=== PATIENT | female | born 1950 ===

== ENCOUNTER → 2020-07-27 13:42 | Outpatient (BNVA) | payer MEDICARE, SELFPAY | PROVIDERS: Referring Provider Family Medicine; Visit Provider Student in an Organized Health Care Education/Training Program | DX: M16.11 Unilateral primary osteoarthritis, right hip (principal) | CPT/HCPCS: 99203 ==

== ENCOUNTER 2020-09-04 13:17 | Outpatient (CLI) | payer MEDICARE, SELFPAY ==
--- NOTE | 2020-09-04 13:00 | DI.RAD_ITS ---
Exam(s) XR PELVIS AP EXAM: XR PELVIS AP CLINICAL HISTORY: pre op bilat JEREMIAS. TECHNIQUE: 2D digital imaging was performed. COMPARISON: CR PELVIS from 06/06/2020 FINDINGS: No evidence of pelvic fracture but there are advanced degenerative changes in both hips and left hip degenerative change has progressed when compared to 3 months ago. Now [id number], more so than pre vious. Right hip is [id number] which is unchanged. In the left hip there is also a calcific densi ty above the femoral neck which is probably a loose intra-articular body measuring approximately 9 x 8 millimeters. IMPRESSION: DATA REPOSITORY: RADIATION DOSE DELIVERED:
== END 2020-09-04 13:18 | disposition home or self-care (01) ==
LOC: DIORS 13:18
PROVIDERS: Visit Provider Physician Assistant
DX: Z01.818 Encounter for other preprocedural examination (principal); M16.0 Bilateral primary osteoarthritis of hip
CPT/HCPCS: 72170

== ENCOUNTER 2020-09-11 02:11 | Outpatient (CLI) | payer SELFPAY ==
[2020-09-11 11:42] LABS: Source Nasal/Nares
[2020-09-11 11:51] LABS: Anion Gap 11.5 mmol/L (3-11); BUN 10 mg/dL (7-18); CO2 27.5 mmol/L (21.0-32.0); CREATININE 0.6 mg/dL (0.55-1.02); Calcium 9.5 mg/dL (8.5-10.1); Chloride 102 mmol/L (98-107); Glucose 91 mg/dL (74-106); Potassium 4.2 mmol/L (3.5-5.1); Sodium 141 mmol/L (136-145)
[2020-09-11 12:09] LABS: HCT 36.2 % (36.0-46.0); HGB 11.7 g/dL (11.2-15.7); MCH 27.7 pg (27.0-33.0); MCHC 32.3 % (32.0-36.0); MCV 85.8 fL (80-95); MPV 8.8 fL (8.0-11.0); Platelet Count 497 10^3/uL (130-400); RBC 4.22 10^6/uL (3.93-5.22); RDW 12.1 % (11.7-14.6); WBC 9.26 10^3/uL (4.4-10.8)
[2020-09-11 14:48] LABS: COVID-19 PCR Negative (Negative)
== END 2020-09-11 02:12 | disposition home or self-care (01) ==
LOC: LBO 02:11
PROVIDERS: Visit Provider Student in an Organized Health Care Education/Training Program
DX: M25.551 Pain in right hip (principal); M25.552 Pain in left hip; M16.0 Bilateral primary osteoarthritis of hip; Z20.822 Contact with and (suspected) exposure to COVID-19; Z01.818 Encounter for other preprocedural examination; Z01.812 Encounter for preprocedural laboratory examination
CPT/HCPCS: 36415; 80048; 85027; 86850; 86900; 86901; 87635

== ENCOUNTER 2020-09-12 06:12 | Inpatient (IN) | payer MEDICARE, SELFPAY ==
[2020-09-12] VITALS (21 sets, daily range): BP systolic 90–157; BP diastolic 55–88; PULSE 62–88; RESP 12–22; TEMP 35.9–37.1; O2SAT 95–100; BMI 19.3
--- NOTE | 2020-09-12 06:46 | W.ANESPRE ---
General Info Date of Service Date Performed: 09/12/20 Height: 5 ft 4 in Weight: 51 kg Body Mass Index (BMI): 19.3 Surgical Procedure: Operation Date: 09/12/20 08:00 Proposed Procedures Side Surgeon p Hip Total Hip Anterior Bilateral Bari Bliss MD Meds Allergies and Home Medications Allergies Allergy/AdvReac Type Severity Reaction Status Date / Time No Known Allergies Allergy Verified 09/12/20 06:19 Home Medication Medication Instructions Recorded gabapentin 800 mg tablet 800 mg PO TID 07/27/20 ibuprofen 600 mg tablet 600 mg PO Q8H PRN 07/27/20 trazodone 100 mg tablet 100 mg PO DAILY 07/27/20 Current Visit Medications: Current Medications Generic Name Dose Route Start Last Admin Trade Name Freq PRN Reason Stop Dose Admin Acetaminophen 1,000 mg 09/12/20 06:00 Acetaminophen 500 Mg Tab PO 09/12/20 23:59 PREOP BILLY Celecoxib 400 mg 09/12/20 06:00 Celecoxib 200 Mg Cap PO 09/12/20 23:59 PREOP BILLY Tranexamic Acid 1,000 mg/ 60 mls @ 360 mls/hr 09/12/20 06:00 Sodium Chloride IV 09/12/20 23:59 PREOP BILLY Tranexamic Acid 1,000 mg/ 60 mls @ 360 mls/hr 09/12/20 06:00 Sodium Chloride IV 09/12/20 23:59 DIRECTED BILLY Ringer's Solution 1,000 mls @ 80 mls/hr 09/12/20 06:00 IV 10/11/20 23:59 INFUSION BILLY Cefazolin Sodium/Dextrose 2 gm in 50 mls @ 100 mls/hr 09/12/20 06:00 Ancef Duplex IVPB 09/12/20 23:59 PREOP BILLY IV Miscellaneous Supplies 1 each 09/12/20 06:00 Iv Access IV 10/11/20 23:59 DIRECTED BILLY Sodium Chloride 0 ml 09/12/20 06:00 Normal Saline Flush 10 Ml Syr IV 10/11/20 23:59 PRN PRN Sodium Chloride 0 ml 09/12/20 06:00 Normal Saline 10 Ml Vial IJ 10/11/20 23:59 DIRECTED PRN Sterile Water 0 ml 09/12/20 06:00 Water,Injection,Sterile 10 Ml Vial IJ 10/11/20 23:59 DIRECTED PRN PFSH Active Problems Active Problems: Problem Status Onset Code Osteoarthritis of right hip M16.11 Bilateral primary osteoarthritis of hip M16.0 Medical History Medical History Bilateral primary osteoarthritis of hip Surgical History Surgical History (Updated 09/12/20 @ 06:18 by Marcos Del Castillo) H/O section History of left inguinal hernia repair Hx of exploratory laparotomy Tobacco Smoking/Tobacco Use Status: Never Alcohol Alcohol Intake: current Alcohol intake frequency: a few times a week Alcohol type: beer and hard liquor Substance Use Substance use: Never Substance use type: does not use Vital Signs and Lab Results Vital Signs Most Recent Vital Signs in EMR: Most Recent Vital Signs Temp Resp 37.1 C 16 09/12/20 06:23 09/12/20 06:23 Lab Results Blood Type / Crossmatch: Patient ABO/Rh A Negative 09/11/20 10:50 09/11/20 Antibody Screen Negative 09/11/20 10:50 09/11/20 Complete Blood Count: White Blood Count 9.26 10^3/uL (4.4-10.8) 09/11/20 10:50 09/11/20 Red Blood Count 4.22 10^6/uL (3.93-5.22) 09/11/20 10:50 09/11/20 Hemoglobin 11.7 g/dL (11.2-15.7) 09/11/20 10:50 09/11/20 Hematocrit 36.2 % (36.0-46.0) 09/11/20 10:50 09/11/20 Platelet Count 497 10^3/uL (130-400) H 09/11/20 10:50 09/11/20 Complete Metabolic Panel: Sodium Level 141 mmol/L (136-145) 09/11/20 10:50 09/11/20 Potassium Level 4.2 mmol/L (3.5-5.1) 09/11/20 10:50 09/11/20 Chloride Level 102 mmol/L (98-107) 09/11/20 10:50 09/11/20 Carbon Dioxide Level 27.5 mmol/L (21.0-32.0) 09/11/20 10:50 09/11/20 Blood Urea Nitrogen 10 mg/dL (7-18) 09/11/20 10:50 09/11/20 Creatinine 0.6 mg/dL (0.55-1.02) 09/11/20 10:50 09/11/20 Calcium Level 9.5 mg/dL (8.5-10.1) 09/11/20 10:50 09/11/20 Glucose Level 91 mg/dL (74-106) 09/11/20 10:50 09/11/20 Liver Function Panel: No Data to Display Coagulation Panel: No Data to Display Cardiac Panel: No Data to Display Arterial Blood Gas: No Data to Display Venous Blood Gas: No Data to Display Pancreas Panel: No Data to Display Thyroid Panel: No Data to Display Infectious Disease: Coronavirus (COVID-19)(PCR) Negative (Negative) 09/11/20 10:56 09/11/20 Coronavirus 2019 Source Nasal/nares 09/11/20 10:56 09/11/20 Blood Cultures: No Data to Display Toxicology Panel: No Data to Display Anesthesia Assessment and Plan Anesthesia History Personal History: No History of Anesthesia Complications Family History: No Family History of Anesthesia Complications Exercise Tolerance Exercise Tolerance: Metabolic Equivalents>4 Pertinent Negatives Pertinent Negatives: No Symptoms of GERD, No Major Cardiovascular Symptoms or Complaints, No Major Pulmonary Symptoms or Complaints and No History of CVA/TIA Cardiac & Pulmonary Exam Cardiac Exam: Normal S1/S2 Heart Sounds Pulmonary Exam: Clear Bilateral Breath Sounds Airway Exam Known Difficult Airway: No Mallampati Class: 2 Mouth Opening: Normal (> 3cm) Thyromental Distance: Greater than 3 cm Neck Range of Motion: Full ROM Neck Circumference: Normal Teeth Condition: Normal Dentition ASA Classification ASA Score: ASA 2 Emergency Case?: No NPO Status NPO Status: NPO Clears >2 hours, Solids >8 hours Anesthesia Plan Resuscitation Status: Full Code Anesthesia Technique: Spinal Anesthesia Airway Planned: Natural Airway Monitors Used: Standard Monitors
--- NOTE | 2020-09-12 07:00 | DI.RAD_ITS ---
Exam(s) XR HIP LT IN OR EXAM: XR HIP LT IN OR CLINICAL HISTORY: osteoarthritis of left hip. TECHNIQUE: 2D and realtime digital imaging was performed. COMPARISON: No exams were available for comparison FINDINGS: Fluoroscopy was provided in the OR for Dr. Bliss. Hard copy images show placement of a left hip p rosthesis. The alignment appears satisfactory. Please see procedure note for details. RADIATION DOSE DELIVERED: charlie Kauffman= 4.99 mGy
--- NOTE | 2020-09-12 07:00 | DI.RAD_ITS ---
Exam(s) XR HIP RT IN OR EXAM: XR HIP RT IN OR CLINICAL HISTORY: osetoarthritis right hip. TECHNIQUE: 2D and realtime digital imaging was performed. COMPARISON: No exams were available for comparison FINDINGS: Fluoroscopy was provided in the OR for Dr. Bliss. Hard copy images show placement of a right hip prosthesis. The alignment appears satisfactory. Please see procedure note for details. RADIATION DOSE DELIVERED: Kar=2.62 mGy
[2020-09-12] MEDS: Celecoxib 200 MG CAP 400 MG PO (07:03)
[2020-09-12] MEDS: Acetaminophen 500 MG TAB 1000 MG PO ×3 (07:03→19:56)
[2020-09-12] MEDS: Lactated Ringers 1,000 ML 80 ML IV ×2 (07:04→14:25)
--- NOTE | 2020-09-12 07:34 | W.PM.DS.N ---
Documented by User: Zaria Juarezxon 09/12/20 07:39 DS: Diagnosis Discharge Diagnosis (1) Bilateral primary osteoarthritis of hip: Status: Acute Discharge Plan Disposition Patient Disposition: HOME Condition: Good Discharge Details Reason For Visit: Bilateral hip DJD Admit Date/Time: 09/12/20 06:12 Admit Provider: Bari Bliss Attending Provider: Bari Bliss Primary Care Provider: None,None Hospital Course Hospital Course: Patient was admitted to the medical/surgical floor following the procedure. The surgery was tolerated well without any notable medical, surgical, or anesthetic complications. Mobilization began post-operatively. They were voiding spontaneously. Vitals were stable. Physical therapy worked with the patient and was cleared for discharge home. No acute medical issues. Pain was controlled on oral regimen. She was sensitive to a single dose of Hydromorphone causing some confusion and hypotension. Home Meds and New Rx's Prescriptions: New celecoxib [Celebrex] 200 mg capsule 200 mg PO BID Qty: 30 RF: 0 aspirin 81 mg tablet,delayed release (DR/EC) 81 mg PO BID 30 Days Qty: 60 RF: 0 acetaminophen 500 mg tablet 500 mg PO Q6H PRN (Reason: pain) Qty: 60 RF: 2 pantoprazole 40 mg tablet,delayed release (DR/EC) 40 mg PO DAILY 30 Days Qty: 30 RF: 0 oxycodone 5 mg tablet 5 mg PO Q6H PRN (Reason: severe post-operative pain) Qty: 12 RF: 0 docusate sodium [Colace] 100 mg capsule 100 mg PO BID Qty: 30 RF: 0 Continued gabapentin 800 mg tablet 800 mg PO TID RF: 0 trazodone 100 mg tablet 100 mg PO DAILY RF: 0 Discontinued ibuprofen 600 mg tablet 600 mg PO Q8H PRNRF: 0 Discharge Instructions Additional Instructions: Total Hip Discharge Instructions Activity: The most important activity is to walk. You should try to take short walks a few times a day. You have no restrictions on movement or positioning, but do not try to force what you do. You will find some stiffness and weakness with hip flexion (lifting your knee). Do not try to strengthen this too early, continue to practice walking and stairs and this will come. - Outpatient physical therapy can be helpful to help return you to a normal gait and improve your flexibility and strength. This can start around 2 weeks. For some patients, it?s not necessary. Usually this is determined at the time of discharge or at the first post-operative visit. - You should wear the AMY hose on both legs for 2 weeks. Dressing: Keep the surgical dressing in place for at least one week. After the first week it may be removed and replace with light gauze and tape or nothing. It may get wet after 3 days but avoid soaking the dressing. If it gets wet, just lightly pat dry. It is important to always keep some gauze between skin folds, especially when you are sitting. Spend some time with the wound exposed when you are lying flat as the incision does wrinkle onto itself. Medications: - You should take Tylenol and an anti-inflammatory Celebrex as your primary pain control medications. If the Celebrex is too expensive or not covered, please call the office for another alternative (Advil/Ibuprofen or Naproxen/Aleve). - You have been prescribed a stronger pain medication Oxycodone for breakthrough pain, take as needed as prescribed. You may also halve this tablet. - You have also been prescribed a stomach acid reduction agent Pantoprozole to help reduce stomach acid and reflux. - You will be taking Aspirin 81mg twice a day for DVT prevention unless instructed otherwise. - If you have constipation you should take Colace (which was prescribed) or Miralax (which you may purchase [id number]). It takes most people 3-4 days to have a bowel movement. Follow-up: 2 weeks If you have any acute concerns or questions, please do not hesitate to contact the office at [phone]. You may contact Dr. Bliss with any questions after hours through the hospital at [phone] or on his cell phone at [phone]. Referrals: Bari Bliss MD [ [facility] STAFF PHYSICIAN] - Activity:: Activity as Tolerated Equipment/Supplies:: Walker Diet:: As Tolerated Discharge Orders Discharge Orders: Discharge Order (Routine); Ordered 09/13/20 Ordered By: Bari Bliss DS: Data Vitals/I&O Vitals and I&O: Vital Signs Temperature 37.1 C 09/12/20 06:23 Pulse Rhythm Regular 09/12/20 06:23 Respiratory Rate 16 09/12/20 06:23 Respiratory Depth Normal 09/12/20 06:23 Oxygen Delivery Method Room Air 09/12/20 06:23 Oxygen Flow Rate 0 09/12/20 06:23 Pain Level 5 09/12/20 06:23 Intake & Output 09/11/20 09/11/20 09/12/20 11:59 23:59 11:59 Weight 51 kg PFSH Medical History Bilateral primary osteoarthritis of hip Surgical History H/O section History of left inguinal hernia repair Hx of exploratory laparotomy Social History Smoking/Tobacco Use Status: Never Smoking risk assessment performed?: Yes Alcohol Intake: current Alcohol Intake frequency: a few times a week Alcohol type: beer and hard liquor Drug use: Never Substance use type: does not use Do you feel safe at home: Yes Additional Social history: lives alone Documented by User: Bari Bliss MD 09/13/20 08:05 Date of service: 09/13/20 Time of Service: 08:02 Discharge Plan Disposition Patient Disposition: HOME Condition: Good Discharge Details Reason For Visit: Bilateral hip DJD Admit Date/Time: 09/12/20 06:12 Admit Provider: Bari Bliss Attending Provider: Bari Bliss Primary Care Provider: None,None Hospital Course Hospital Course: Patient was admitted to the medical/surgical floor following the procedure. The surgery was tolerated well without any notable medical, surgical, or anesthetic complications. Mobilization began post-operatively. They were voiding spontaneously. Vitals were stable. Physical therapy worked with the patient and was cleared for discharge home. No acute medical issues. Pain was controlled on oral regimen. She was sensitive to a single dose of Hydromorphone causing some confusion and hypotension. Home Meds and New Rx's Prescriptions: New celecoxib [Celebrex] 200 mg capsule 200 mg PO BID Qty: 30 RF: 0 aspirin 81 mg tablet,delayed release (DR/EC) 81 mg PO BID 30 Days Qty: 60 RF: 0 acetaminophen 500 mg tablet 500 mg PO Q6H PRN (Reason: pain) Qty: 60 RF: 2 pantoprazole 40 mg tablet,delayed release (DR/EC) 40 mg PO DAILY 30 Days Qty: 30 RF: 0 oxycodone 5 mg tablet 5 mg PO Q6H PRN (Reason: severe post-operative pain) Qty: 12 RF: 0 docusate sodium [Colace] 100 mg capsule 100 mg PO BID Qty: 30 RF: 0 Continued gabapentin 800 mg tablet 800 mg PO TID RF: 0 trazodone 100 mg tablet 100 mg PO DAILY RF: 0 Discontinued ibuprofen 600 mg tablet 600 mg PO Q8H PRNRF: 0 Discharge Instructions Additional Instructions: Total Hip Discharge Instructions Activity: The most important activity is to walk. You should try to take short walks a few times a day. You have no restrictions on movement or positioning, but do not try to force what you do. You will find some stiffness and weakness with hip flexion (lifting your knee). Do not try to strengthen this too early, continue to practice walking and stairs and this will come. - Outpatient physical therapy can be helpful to help return you to a normal gait and improve your flexibility and strength. This can start around 2 weeks. For some patients, it?s not necessary. Usually this is determined at the time of discharge or at the first post-operative visit. - You should wear the AMY hose on both legs for 2 weeks. Dressing: Keep the surgical dressing in place for at least one week. After the first week it may be removed and replace with light gauze and tape or nothing. It may get wet after 3 days but avoid soaking the dressing. If it gets wet, just lightly pat dry. It is important to always keep some gauze between skin folds, especially when you are sitting. Spend some time with the wound exposed when you are lying flat as the incision does wrinkle onto itself. Medications: - You should take Tylenol and an anti-inflammatory Celebrex as your primary pain control medications. If the Celebrex is too expensive or not covered, please call the office for another alternative (Advil/Ibuprofen or Naproxen/Aleve). - You have been prescribed a stronger pain medication Oxycodone for breakthrough pain, take as needed as prescribed. You may also halve this tablet. - You have also been prescribed a stomach acid reduction agent Pantoprozole to help reduce stomach acid and reflux. - You will be taking Aspirin 81mg twice a day for DVT prevention unless instructed otherwise. - If you have constipation you should take Colace (which was prescribed) or Miralax (which you may purchase [id number]). It takes most people 3-4 days to have a bowel movement. Follow-up: 2 weeks If you have any acute concerns or questions, please do not hesitate to contact the office at [phone]. You may contact Dr. Bliss with any questions after hours through the hospital at [phone] or on his cell phone at [phone]. Referrals: Bari Bliss MD [ [facility] STAFF PHYSICIAN] - Activity:: Activity as Tolerated Equipment/Supplies:: Walker Diet:: As Tolerated Discharge Orders Discharge Orders: Discharge Order (Routine); Ordered 09/13/20 Ordered By: Bari Bliss DS: Summary Time Spent with Patient providing and/or coordinating discharge services: Less than 30 minutes Status at Discharge Functional status at discharge: uses cane/walker Overall status at discharge: patient is progressing back to baseline Mental Status: mental status grossly normal Speech and Movement: speech and movement normal Mood: congruent mood Affect: normal affect Exam Psych Mental Status: mental status grossly normal Speech and Movement: speech and movement normal Mood: congruent mood Affect: normal affect [facility] Medical History Bilateral primary osteoarthritis of hip Surgical History H/O section History of left inguinal hernia repair Hx of exploratory laparotomy Social History Smoking/Tobacco Use Status: Never Smoking risk assessment performed?: Yes Alcohol Intake: current Alcohol Intake frequency: a few times a week Alcohol type: beer and hard liquor Drug use: Never Substance use type: does not use Do you feel safe at home: Yes Additional Social history: lives alone
[2020-09-12] MEDS: ceFAZolin 2 GM/50 ML BAG IVPB (08:00)
[2020-09-12] MEDS: Ketorolac 30 MG/ML VIAL (08:45)
[2020-09-12] MEDS: Bupivacaine 0.25% Pres-Free 30 ML VIAL (08:45)
[2020-09-12] MEDS: LORazepam 2 MG/ML VIAL 0.5 MG IVP (11:47)
--- NOTE | 2020-09-12 13:05 | IN_ITS ---
Date of service: 09/12/20 Time of Service: 13:05 PT Notes Visit Reasons: Bilateral hip DJD Physical Therapy Inpatient Initial Evaluation Date: 09/12/2020 Referring Doctor: Bari Bliss MD PT Orders: PT CONSULT: Status post Ortho surgery. Status post bilateral anterior JEREMIAS. Precautions: Fall. Standard. WBAT on BLE with AD. Patient Profile/Admitting Diagnosis: Margret is a 70-year-old female withl primary osteoarthritis of bilateral hips and is status post bilateral anterior total hip arthroplasty on done PMHX: Medical History? Bilateral primary osteoarthritis of hip Surgical History?(Updated 09/04/20 @ 14:13 by OSCAR Andres) H/O section History of left inguinal hernia repair Social History/Home Situation: Emily lives alone in a private home with 2 steps to enter without rails. There is another set of 20 steps to her bedroom and 7 steps to her basement, both have a 1 rail. She is independent with all aspects of ADLs prior to surgery without assistive ambulatory device nor adaptive equipment. 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 Equipment Owned/DME: 4-wheeled walker, single-point cane Subjective: [place] a little woozy upon sitting up in bed. Reports 3/10 pain in lo back. States being stiff in B hips. Ready to get out of bed to walk. Inicated feeling a lot better and less stiffer after ambulation activity. Objective: General Observation: Mepilex Ag over surgical incisions. B TEDS on. Bang[place] catheter in place. Mental Status: Alert and oriented as to person, place, time, and purpose. Able to pay attention, focus, and respond appropriately. Pain: 3/10 in low back and B hips Vital Signs: Within normal limits as closely monitored before and during physical therapy session by nurse Montgomery ROM: Right Upper Extremity: Shoulder Flexion WFL. Shoulder abduction WFL. Shoulder ER/IR WFL. Elbow flexion WFL. Forearm pronation/supination WFL. Wrist flexion WFL. Opening and closing of hand WFL. Left Upper Extremity: Shoulder Flexion WFL. Shoulder abduction WFL. Shoulder ER/IR WFL. Elbow flexion WFL. Forearm pronation/supination WFL. Wrist flexion WFL. Opening and closing of hand WFL. Right Lower Extremity: Hip flexion WFL. Hip abduction WFL. Hip ER/IR WFL. Knee flexion WFL. Knee extension. Ankle dorsiflexion/eversion WFL. Ankle plantarflexion/inversion WFL. Left Lower Extremity: Hip flexion WFL. Hip abduction WFL. Hip ER/IR WFL. Knee flexion 20 degrees to 100 degrees. Knee extension -20 degrees. Ankle dorsiflexion WFL. Ankle plantarflexion WFL. Strength: Right Upper Extremity: Shoulder flexors 5/5. Shoulder abductors 5/5. Shoulder ER 5/5. Shoulder IR 5/5. Forearm pronators 5/5. Forearm supinators 5/5. Elbow flexors 5/5. Elbow extensors 5/5. Guest Services Coordinator strong. Left Upper Extremity: Shoulder flexors 5/5. Shoulder abductors 5/5. Shoulder ER 5/5/ Shoulder IR 5/5. Forearm pronators 5/5. Forearm supinators 5/5. Elbow flexors 5/5. Elbow extensors 5/5. Guest Services Coordinator strong. Right Lower Extremity: Hip flexors 4/5. Hip abductors 4/5. Hip external rotators 4/5. Hip internal rotators 4/5. Knee flexors 4/5. Knee extensors 4/5. Ankle dorsiflexors/evertors 5/5. Ankle plantarflexors/invertors 5/5. Left Lower Extremity: Hip flexors 4/5. Hip abductors 4/5. Hip external rotators 4/5. Hip internal rotators 4/5. Knee flexors 3-/5. Knee extensors 3-/5. Ankle dorsiflexors/evertors 5/5. Ankle plantarflexors/invertors 5/5. Bed Mobility/Transfers: Rolling minimal assist Supine to sit minimal assist with HOB at 45 degrees Sit to stand contact-guard assist Stand to sit contact-guard assist Bed to chair contact-guard assist Chair to bed contact-guard assist Gait: Guided patient with level surface ambulation of 240 feet using front wheeled walker with WBAT on BLE requiring contact-guard assist with decreased lovely, slightly widened LASHELL, and no report of 3/10 pain resolved with rest. No SOB. Denies headache and chest pain. No LOB. Balance: Static Sitting: Normal Dynamic Sitting: Normal Static Standing: Fair Dynamic Standing: Fair Special Tests: Mobility Limitations Standardized Measure [facility] AM-PAC 6 clicks Basic Mobility Inpatient Short Form: Raw Score: 18 CMS Score: 47% deficit Informed Consent/Education: Patient and daughters were instructed in purpose of PT consult and plan of care. Agreeable to proceed with established PT POC to achieve personal goals. Room exercises were written today for patient to minimize stiffness, prevent swelling, and maintain AROM. Assessment: Emily demonstrates functional mobility decline, weakness of B hip musculature, difficulty with walking, impairment in balance, impaired activity tolerance, and increased risk for falls due to postoperative status. Daughters will be both at home to provide support for mother as she recovers at home. Patient presents with clinical signs and symptoms consistent with current/admitting diagnoses that have resulted to mobility limitations, gait instability, generalized weakness, and impairment of motor control as demonstrated by the following impairment level findings: 1. Decreased strength to B hip major muscle groups L knee extensor weakness>>R 2. Impaired sitting/standing balance 3. Impaired activity tolerance Impairments are contributing to the following functional limitations: 1. Dependent bed mobility skills 2. Increased dependence with transfers 3. Inability to safely ambulate without assistive device and physical assistance 4. Increase completion time for mobility ADL performance 5. Increased fall risk 6. Inability to negotiate steps alone safely Patient is assessed as a 05729 moderate complexity based on the following: History: 70-year-old female with past medical history as indicated above Examination: Demonstrable impairment in strength, balance, and mobility level with underlying impairments and functional limitations as exhibited above as well as deficit score of 47% utilizing the [facility] Mobility Inpatient Short Form Presentation: Evolving Decision Makin moderate complexity Goals: Goals X1 week 1. Supine-Sit independent 2. Sit-Supine independent 3. Sit-Stand independent 4. Stand-Sit independent 5. Bed-Chair independent 6. Chair-Bed independent 7. Independent gait on level surface with use of front wheel walker for at least 300 feet without report of pain nor dyspnea 8. Independent stair negotiation while holding onto 1 rail for at least 15 steps without report of pain nor dyspnea 9. Independent with home exercise program 10. Good static and dynamic standing balance/tolerance Plan of Care/Treatment Plan: 1-2x/day, 7 days/week x 1 week. Plan of care has been reviewed with the PATIENT SERVICE COORDINATOR providing the service under Physical Therapy direction. Initiate Physical Therapy intervention for pain management as needed, strengthening, bed mobility, transfers, gait, stairs, balance training, and use of assistive device. DISCHARGE RECOMMENDATIONS: Home when medically cleared by orthopedic surgeon. Patient will benefit from home health PT services in order to progress mobility level using least restrictive assistive ambulatory device, assess home safety, identify additional equipment needs, and establish a functional maintenance program that will increase ability of patient to remain at home. TREATMENT CODE/TIME: 97091 x 30 minutes, 43698 x 15 minutes, [id number] x 14 minutes beginning at 13:05 PM. Thank you for the opportunity to participate in the care of this patient. Francoise Savage PT, DPT, CLT [facility] [place], [place]
--- NOTE | 2020-09-12 14:06 | W.ANESPOSTOP ---
Postoperative Evaluation Date, Time and Location Date Performed: 09/12/20 Time Performed: 14:06 Patient Location: Med/Surg Vital Signs Most Recent Imported Vital Signs: Most Recent Vital Signs Temp Pulse Resp BP Pulse Ox 35.9 C L 78 18 127/79 95 09/12/20 13:15 09/12/20 13:15 09/12/20 13:15 09/12/20 13:15 09/12/20 13:15 Pain Score Most Recent Pain Score: Most Recent Pain Score Pain Level 3 09/12/20 13:15 Assessment Mental Status: Awake (Alert & Oriented to Patient Baseline) Airway and Respiratory Function: Patent airway with normal (patient baseline) respiratory exam Cardiovascular Function: Hemodynamically Stable Hydration Status: Adequately Hydrated Nausea & Vomiting: No Nausea or Vomiting Pain: Pain is tolerable/mild (<5/10) Peripheral Nerve Block: Patient did not receive a nerve block
[2020-09-12] MEDS: ceFAZolin 1 GM/50 ML BAG IVPB ×2 (14:25→21:37)
[2020-09-12] MEDS: Gabapentin 800 MG TAB PO ×2 (14:27→19:55)
[2020-09-12] MEDS: oxyCODONE 5 MG TAB PO (15:08)
[2020-09-12] MEDS: Aspirin E.C. 81 MG TABEC PO (19:55)
[2020-09-12] MEDS: Celecoxib 200 MG CAP PO (19:56)
[2020-09-12] MEDS: traZODone 100 MG TAB PO (21:36)
[2020-09-12] MEDS: HYDROmorphone 2 MG/ML VIAL 0.5 MG IVP (21:36)
[2020-09-12] MEDS: Normal Saline Flush 10 ML SYR IV (21:37)
--- NOTE | 2020-09-12 22:33 | W.PM.OP ---
Date of service: 09/12/20 Time of Service: 10:33 Operative Note Operative Note DATE OF PROCEDURE: 09/12/20 PRE-OP DIAGNOSIS: Bilateral Hip Osteoarthritis POST-OP DIAGNOSIS: same PROCEDURE: Bilateral Anterior Total Hip Arthroplasty SURGEON: Bari Bliss PRACTICAL NURSING FACULTY: Zaria Floyd ANESTHESIA TYPE: Spinal Refer to Anesthesia Record ESTIMATED BLOOD LOSS: 300 PATHOLOGY: none sent TOURNIQUET TIME: 0 COMPLICATIONS: None Patient was transported to: PACU Patient's condition: stable Implants: RIGHT: 1. Depuy [place] Acetabular Component, 50mm 2. Depuy Acetabular Liner, [id number] 3. Depuy Corail Standard Collared Femoral Stem, Size 11 4. Depuy Altrx Ceramic Femoral Head, Size 32+1 LEFT: 1. Depuy [place] Acetabular Component, 50mm 2. Depuy Acetabular Liner, 50x32 mm 3. Depuy Corail Standard Collared Femoral Stem, Size 11 4. Depuy Altrx Ceramic Femoral Head, Size 32+5mm Indications: I have seen Emily in clinic for symptoms of hip arthritis, confirmed with radiographic findings. Emily has exhausted nonoperative methods and was having significant limitations in daily function and desired better function and less pain. I discussed the technical details of a hip replacement. I explained the risks of the procedure to include, but not limited to, bleeding, infection, pain, stiffness, fracture, damage to nerves and vessels, damage to muscles and tendons, loosening, instability, leg length inequality, need for repeat procedure, blood clot and cardiopulmonary demise. Despite these risks, she elected to proceed. Findings: There was significant signs of arthritis throughout both hips. Deformity was noted on the right hip and complete loss of superior cartilage was present on both femoral heads. Procedure Description: Emily was greeted in the preoperative holding area where the correct side was identified and marked. The consent was reviewed with the patient and signed. The history and physical was updated. All questions were answered. Emily was taken back to the operating room. A spinal anesthestic was then administered. The patient was placed into the supine position on the HANA table where both feet were wrapped with Webrill and Koban and placed into well padded boots. The boots were secured and attached to the HANA table. She was slid down onto a peroneal post. Arms were secured in an abducted position, well padded. Prophylactic antibiotics in the form of Cefazolin were administered. 1g of Tranxemic Acid was given intravenously within 30 minutes of incision. The right leg was then prepped with Chloraprep and draped in a standard fashion. A second prep with Chloraprep was performed prior to placement of a shower-curtain type drape with Iodine impregnated skin protection. A timeout to confirm correct identity, side and site, procedure, allergies, anesthesia, and medical concerns was performed. RIGHT Side An obliquely oriented incision was made starting lateral to the ASIS and running distal over the Tensor Fascia Maci (TFL) muscle belly toward the fibular head, approximately 10cm. The skin and soft tissue was dissected sharply, through Kaur?s fascia, and to the fascia of the TFL. With the fascia and superior border of the IT band identified, the fascia was incised with a new knife just above any perforators from the IT band. The TFL muscle belly was bluntly dissected away from the fascia and moved laterally. The fat between TFL and rectus was identified to ensure the dissection was not within the TFL. Blunt dissection created space between abductors and the capsule and retractor was placed over the lateral femoral neck. The fibers of the rectus femoris tendon were identified and these were freed from the anterior capsule. A second cobra retractor was placed around the medial femoral neck. The TFL was further retracted laterally to show the deep fascia. Careful dissection through this layer identified three main crossing vessels of the lateral femoral circumflex. These were cauterized in multiple locations and then cut without any noticeable bleeding. The TFL was further released bluntly from the deep fascia to expose anterior hip capsule and fat The Sanchez orthopaedic retractor was then placed beneath the TFL and against sartorius and medial soft tissues to protect and retract the soft tissues. A T-capsulotomy was then performed starting at the superior lateral acetabulum and moving distally to the intertrochanteric ridge. These capsular flaps were tagged with a No. 1 Ethibond and elevated from within. The capsular flaps were released to the shoulder of the lateral neck and to the lesser trochanter to give excellent visualization of the proximal femur. A neck osteotomy was performed using an oscillating saw based on preoperative templates. This cut started in the shoulder and of the lateral neck and exited medially. The saw was at all times directed medially to avoid injury to the greater trochanter. 6cm of traction was applied to the leg and the osteotomy opened. The femoral head was removed with a corkscrew, making sure to protect the TFL on its exit. This was measured on the back table to determing the starting reamer size. Portions of the rectus obscuring visualization were minimally elevated off the superior acetabulum. An anterior retractor was placed over the anterior wall between capsule and labrum and attached to the Gripper retraction system. A posterior retractor was placed similarly. This provided excellent visualization. The contents of the cotyloid fossa were removed with electrocautery and the labrum was removed with a knife. There was a notable floor osteophyte. Acetabular reaming began with a 45mm reamer. This first reaming was directed anterior to posterior and medial to get down to the true floor. This was inspected and reamed until the true floor was reached. The anterior retractor was then released and entry and exit was provided by traction on the capsular flaps. I then reamed sequentially up to a 49mm reamer where good fit was obtained. The larger reamers were oriented based on anatomical reference of the anterior and lateral jo to ensure proper abduction and anteversion. Positioning and size was confirmed with the fluoroscopy. A 50mm Depuy [place] acetabular component was selected. The acetabulum was reamed around the periphery with the selected acetabular size to prevent a rim fit. The deep tissues were irrigated. The acetabular component was then impacted in a position of about 40-45 degrees of abduction and 15-20 degrees of anteversion, using the patient?s anatomy as the ultimate landmark. Fluoroscopy was used to confirm this. There was excellent zoo director of the acetabular component and the inserting handle was removed. The acetabular liner, Depuy [id number] polyethylene liner, was inserted and lined up with the tines of the acetabular component. There was no soft tissue interposition. The liner was then impacted into position and confirmed to be well-seated. A portion of the adrian-articular cocktail was then injected around the acetabulum into the capsule and periosteum. This cocktail consisted of 50cc of 0.25% Bupivicaine and 20cc of Exparel, expanded to a total of 120cc. Traction was released from the femur. The leg was rotated to 120 degrees. Any remaining medial capsule was released until the lesser trochanter was easily palpable. A Wells retractor was placed medially. The lateral capsule was further released into the shoulder to allow access to the greater trochanter. A Wells retractor was placed over the greater trochanter which allowed the trochanter to flip in front of the capsule for excellent exposure. The leg was brought down into maximal extension and 20 degrees of adduction while ensuring there was no impingement on the acetabulum. Any remnant capsule within the trochanter was released. Piriformis and obturator externis were identified and protected. There was excellent access to the proximal femur. The lateral neck remnant was removed with a rongeur. A blunt canal probe was used to identify the canal and trajectory for later broaching. A box osteotome initiated the broach course. A small curved rasp and a curved curette were used to work laterally. Broaching then began with a size 8 Corail broach. This was inserted manually around the trochanter and into the canal before mallet blows. The broach was seated to a few millimeters below the cut level based on the neck cut and the preoperative template. Sequential broaching was continued with the [employer] pneumatic broaching device until a tight fit was obtained with good rotational control of the femur. A trial standard neck was inserted along with a +1 trial head. The leg was brought out of extension and adduction and then reduced with traction and internal rotation. The leg was stable anteriorly in a position of 30 degrees of extension and 90 degrees of external rotation. Fluoroscopy was used to ensure there was no fracture and the stem was seated well. Leg lengths were checked with an AP pelvis and pelvic reference points. ScoreFeeder navigation system was used to confirm appropriate positioning and leg length and offset. Preoperative plan was to increase the leg length of the right hip as well as the femoral offset while keeping the total offset unchanged due to her valgus anatomy. This made arriving at the perfect combination of neck/head option somewhat challenging but seemed best fit with the standard +1. However there was still shuck with the hip, but it was stable to external rotation and extension. Once content with the desired offset and leg lengths, the leg was brought back into extension, external rotation and adduction. The periosteum and surrounding tissue was injected with remaining portion of the adrian-articular cocktail. The proximal femur was irrigated as well as the deep tissues. The [place] Corail standard collared stem, size 11, was then manually inserted into the proximal femur making sure to control rotation. It was then malleted into position with light blows, giving breaks to allow bone expansion and decrease risk of fracture. The selected Depuy Altrx Ceramic Head, size 32+1mm, was then placed onto the clean and dry trunnion and secured with impaction onto the tapered fit. The leg was brought back out of extension and adduction and reduced with traction and internal rotation. Stability was confirmed with no shuck at 90 degrees of external rotation and 30 degrees of extension. No impingement through range of motion arc. Final x-ray images were obtained with fluoroscopy to confirm adequate positioning and no intraoperative fracture. The deep tissues were thoroughly irrigated with Irrisept chlorhexadine solution. The second dose of TXA 1g was administered intravenously.The capsule was then reapproximated with the previously placed Ethibond sutures. The TFL fascia was finally closed with a No. 2 Stratafix, barbed suture. Deep tissues were then reapproximated with 0 Vicryl and a running 2-0 Vicryl. The skin was closed with a running 4-0 Monocryl in a subcuticular fashion. This was reinforced with skin glue. A Mepilex silver dressing was applied. LEFT Side Keeping the back table sterile, the drapes were removed, light handles changed, and fluoroscopy switched rooms sides. The left leg was then prepped with Chloraprep and draped in a standard fashion. A second prep with Chloraprep was performed prior to placement of a shower-curtain type drape with Iodine impregnated skin protection. A timeout was once again performed to ensure that there were no issues to proceed. An obliquely oriented incision was made starting lateral to the ASIS and running distal over the Tensor Fascia Maci (TFL) muscle belly toward the fibular head, approximately 10cm. The skin and soft tissue was dissected sharply, through Kaur?s fascia, and to the fascia of the TFL. With the fascia and superior border of the IT band identified, the fascia was incised with a new knife just above any perforators from the IT band. The TFL muscle belly was bluntly dissected away from the fascia and moved laterally. The fat between TFL and rectus was identified to ensure the dissection was not within the TFL. Blunt dissection created space between abductors and the capsule and retractor was placed over the lateral femoral neck. The fibers of the rectus femoris tendon were identified and these were freed from the anterior capsule. A second cobra retractor was placed around the medial femoral neck. The TFL was further retracted laterally to show the deep fascia. Careful dissection through this layer identified three main crossing vessels of the lateral femoral circumflex. These were cauterized in multiple locations and then cut without any noticeable bleeding. The TFL was further released bluntly from the deep fascia to expose anterior hip capsule and fat The Sanchez orthopaedic retractor was then placed beneath the TFL and against sartorius and medial soft tissues to protect and retract the soft tissues. A T-capsulotomy was then performed starting at the superior lateral acetabulum and moving distally to the intertrochanteric ridge. These capsular flaps were tagged with a No. 1 Ethibond and elevated from within. The capsular flaps were released to the shoulder of the lateral neck and to the lesser trochanter to give excellent visualization of the proximal femur. A neck osteotomy was performed using an oscillating saw based on preoperative templates. This cut started in the shoulder and of the lateral neck and exited medially. The saw was at all times directed medially to avoid injury to the greater trochanter. 6cm of traction was applied to the leg and the osteotomy opened. The femoral head was removed with a corkscrew, making sure to protect the TFL on its exit. This was measured on the back table to determing the starting reamer size. Portions of the rectus obscuring visualization were minimally elevated off the superior acetabulum. An anterior retractor was placed over the anterior wall between capsule and labrum and attached to the Gripper retraction system. A posterior retractor was placed similarly. This provided excellent visualization. The contents of the cotyloid fossa were removed with electrocautery and the labrum was removed with a knife. There was a notable floor osteophyte. Acetabular reaming began with a 45mm reamer. This first reaming was directed anterior to posterior and medial to get down to the true floor. This was inspected and reamed until the true floor was reached. The anterior retractor was then released and entry and exit was provided by traction on the capsular flaps. I then reamed sequentially up to a 49mm reamer where good fit was obtained. The larger reamers were oriented based on anatomical reference of the anterior and lateral jo to ensure proper abduction and anteversion. Positioning and size was confirmed with the fluoroscopy. A 50mm Depuy [place] acetabular component was selected. The acetabulum was reamed around the periphery with the selected acetabular size to prevent a rim fit. The deep tissues were irrigated. The acetabular component was then impacted in a position of about 40-45 degrees of abduction and 15-20 degrees of anteversion, using the patient?s anatomy as the ultimate landmark. Fluoroscopy was used to confirm this. Although it clinically appeared appropriate within the wound the component seemed slightly distal as well as anteverted on the x-ray. Once again I visually inspected the cup and it had great fit with slight overhang laterally and flush anteriorly. Therefore, I accepted this positioning although it was radiographically different than the right side. There was excellent zoo director of the acetabular component and the inserting handle was removed. The acetabular liner, Depuy [id number] polyethylene liner, was inserted and lined up with the tines of the acetabular component. There was no soft tissue interposition. The liner was then impacted into position and confirmed to be well-seated. A portion of the adrian-articular cocktail was then injected around the acetabulum into the capsule and periosteum. This cocktail consisted of 50cc of 0.25% Bupivicaine and 20cc of Exparel, expanded to a total of 120cc. Traction was released from the femur. The leg was rotated to 120 degrees. Any remaining medial capsule was released until the lesser trochanter was easily palpable. A Wells retractor was placed medially. The lateral capsule was further released into the shoulder to allow access to the greater trochanter. A Wells retractor was placed over the greater trochanter which allowed the trochanter to flip in front of the capsule for excellent exposure. The leg was brought down into maximal extension and 20 degrees of adduction while ensuring there was no impingement on the acetabulum. Any remnant capsule within the trochanter was released. Piriformis and obturator externis were identified and protected. There was excellent access to the proximal femur. The lateral neck remnant was removed with a rongeur. A blunt canal probe was used to identify the canal and trajectory for later broaching. A box osteotome initiated the broach course. A small curved rasp and a curved curette were used to work laterally. Broaching then began with a size 8 Corail broach. This was inserted manually around the trochanter and into the canal before mallet blows. The broach was seated to a few millimeters below the cut level based on the neck cut and the preoperative template. Sequential broaching was continued with the [employer] pneumatic broaching device until a tight fit was obtained with good rotational control of the femur. A trial standard neck was inserted along with a +1 trial head. The leg was brought out of extension and adduction and then reduced with traction and internal rotation. The leg was stable anteriorly in a position of 30 degrees of extension and 90 degrees of external rotation. Fluoroscopy was used to ensure there was no fracture and the stem was seated well. Leg lengths were checked with an AP pelvis and pelvic reference points. ScoreFeeder navigation system was used to confirm appropriate positioning and leg length and offset. Interestingly, there was not enough offset correction based on the navigation system. However, there was too much leg length since this was considered the longer leg from [facility] start. However, it was not difficult to reduce and still had shuck on reduction yet not dislocatable with external rotation and extension. Thus, I obtained an AP pelvis and used an alignment shameka to assess leg length and offset. In this position the left hip still seemed short (although it said otherwise on the navigation system). Thus, since it was easy to reduce with a present shuck and there was some slight undercorrectin of offset, I proceded to trial the +5 head. This provided much better feel on reduction. Then, the leg was brought back into extension, external rotation and adduction. The periosteum and surrounding tissue was injected with remaining portion of the adrian-articular cocktail. The proximal femur was irrigated as well as the deep tissues. The Depuy Corail standard collared stem, size 11, was then manually inserted into the proximal femur making sure to control rotation. It was then malleted into position with light blows, giving breaks to allow bone expansion and decrease risk of fracture. The selected Depuy Altrx Ceramic Head, size 32+5mm, was then placed onto the clean and dry trunnion and secured with impaction onto the tapered fit. The leg was brought back out of extension and adduction and reduced with traction and internal rotation. Stability was confirmed with no shuck at 90 degrees of external rotation and 30 degrees of extension. No impingement through range of motion arc. Final x-ray images were obtained with fluoroscopy to confirm adequate positioning and no intraoperative fracture. The deep tissues were thoroughly irrigated with Irrisept chlorhexadine solution. The capsule was then reapproximated with the previously placed Ethibond sutures. The TFL fascia was finally closed with a No. 2 Stratafix, barbed suture. Deep tissues were then reapproximated with 0 Vicryl and a running 2-0 Vicryl. The skin was closed with a running 4-0 Monocryl in a subcuticular fashion. This was reinforced with skin glue. A Mepilex silver dressing was applied. At the end of the case, all counts were correct. Emily was transferred to the hospital bed without difficulty and suffering no apparent complication. She has a good prognosis. Physical therapy will start today and without restrictions, weight-bearing as tolerated. Aspirin 81mg BID will be used for DVT prophylaxis. Emily will be admitted as an inpatient for acute pain control following bilateral hip replacement as well as monitoring of hemodynamic status after this large surgery.
[2020-09-13 03:56] VITALS: BP 118/58; PULSE 80; RESP 18; TEMP 36.6; O2SAT 97
[2020-09-13] MEDS: ceFAZolin 1 GM/50 ML BAG IVPB (06:09)
[2020-09-13] MEDS: Normal Saline Flush 10 ML SYR IV ×4 (06:09→10:15)
[2020-09-13 06:54] LABS: HCT 28.9 % (36.0-46.0); HGB 9.3 g/dL (11.2-15.7); MCH 27.7 pg (27.0-33.0); MCHC 32.2 % (32.0-36.0); MPV 8.6 fL (8.0-11.0); Platelet Count 422 10^3/uL (130-400); RBC 3.36 10^6/uL (3.93-5.22); RDW 12.2 % (11.7-14.6); RDW-SD 38.1 fL; WBC 9.44 10^3/uL (4.4-10.8)
[2020-09-13] MEDS: HYDROmorphone 2 MG/ML VIAL 0.5 MG IVP (07:09)
[2020-09-13 07:10] LABS: BUN 12 mg/dL (7-18); CREATININE 0.7 mg/dL (0.55-1.02); Calcium 8.8 mg/dL (8.5-10.1); Chloride 106 mmol/L (98-107); Glucose 103 mg/dL (74-106); Potassium 3.7 mmol/L (3.5-5.1); Sodium 143 mmol/L (136-145)
[2020-09-13 07:40] VITALS: BP 80/60; PULSE 69; RESP 16; TEMP 36.7; O2SAT 94
[2020-09-13] MEDS: Pantoprazole 40 MG TABCR PO (08:20)
[2020-09-13 08:21] VITALS: BP 90/65
[2020-09-13] MEDS: Lactated Ringers 1,000 ML 1000 ML IV (08:25)
[2020-09-13] MEDS: Gabapentin 800 MG TAB PO (08:33)
[2020-09-13] MEDS: Acetaminophen 500 MG TAB 1000 MG PO (08:33)
[2020-09-13] MEDS: Aspirin E.C. 81 MG TABEC PO (08:33)
[2020-09-13] MEDS: Celecoxib 200 MG CAP PO (08:33)
--- NOTE | 2020-09-13 10:59 | PT.INDS ---
Date of service: 09/12/20 Time of Service: 10:59 PT Notes Visit Reasons: Bilateral hip DJD Physical Therapy Inpatient Discharge Summary Date: 09/13/2020 Dates of Service: 09/12/2020 through 09/13/2020 Referring Doctor: Bari Bliss MD PT Orders: PT CONSULT: Status post Ortho surgery. Status post bilateral anterior JEREMIAS. Precautions: Fall. Standard. WBAT on BLE with AD. Patient Profile/Admitting Diagnosis: Margret is a 70-year-old female withl primary osteoarthritis of bilateral hips and is status post bilateral anterior total hip arthroplasty on done PMHX: Medical History Bilateral primary osteoarthritis of hip Surgical History (Updated 09/04/20 @ 14:13 by OSCAR Andres) H/O section History of left inguinal hernia repair Social History/Home Situation: Emily lives alone in a private home with 2 steps to enter without rails. There is another set of 20 steps to her bedroom and 7 steps to her basement, both have a 1 rail. She is independent with all aspects of ADLs prior to surgery without assistive ambulatory device nor adaptive equipment. 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 Equipment Owned/DME: 4-wheeled walker, single-point cane Subjective: No longer woozy. Feels a lot better. Only has an ache in the hips now. Looking forward to going home today. Objective: General Observation: Mepilex Ag over surgical incisions. B TEDS on. Bang[place] catheter in place. Mental Status: Alert and oriented as to person, place, time, and purpose. Able to pay attention, focus, and respond appropriately. Pain: 1-2/10 in low back and B hips ROM: Right Upper Extremity: Shoulder Flexion WFL. Shoulder abduction WFL. Shoulder ER/IR WFL. Elbow flexion WFL. Forearm pronation/supination WFL. Wrist flexion WFL. Opening and closing of hand WFL. Left Upper Extremity: Shoulder Flexion WFL. Shoulder abduction WFL. Shoulder ER/IR WFL. Elbow flexion WFL. Forearm pronation/supination WFL. Wrist flexion WFL. Opening and closing of hand WFL. Right Lower Extremity: Hip flexion WFL. Hip abduction WFL. Hip ER/IR WFL. Knee flexion WFL. Knee extension. Ankle dorsiflexion/eversion WFL. Ankle plantarflexion/inversion WFL. Left Lower Extremity: Hip flexion WFL. Hip abduction WFL. Hip ER/IR WFL. Knee flexion 20 degrees to 100 degrees. Knee extension -20 degrees. Ankle dorsiflexion WFL. Ankle plantarflexion WFL. Strength: Right Upper Extremity: Shoulder flexors 5/5. Shoulder abductors 5/5. Shoulder ER 5/5. Shoulder IR 5/5. Forearm pronators 5/5. Forearm supinators 5/5. Elbow flexors 5/5. Elbow extensors 5/5. Psychiatric Technician strong. Left Upper Extremity: Shoulder flexors 5/5. Shoulder abductors 5/5. Shoulder ER 5/5/ Shoulder IR 5/5. Forearm pronators 5/5. Forearm supinators 5/5. Elbow flexors 5/5. Elbow extensors 5/5. Psychiatric Technician strong. Right Lower Extremity: Hip flexors 4/5. Hip abductors 4/5. Hip external rotators 4/5. Hip internal rotators 4/5. Knee flexors 4/5. Knee extensors 4/5. Ankle dorsiflexors/evertors 5/5. Ankle plantarflexors/invertors 5/5. Left Lower Extremity: Hip flexors 4/5. Hip abductors 4/5. Hip external rotators 4/5. Hip internal rotators 4/5. Knee flexors 3-/5. Knee extensors 3-/5. Ankle dorsiflexors/evertors 5/5. Ankle plantarflexors/invertors 5/5. Bed Mobility/Transfers: Rolling independent Supine to sit independent Sit to stand independent Stand to sit independent Bed to chair independent Chair to bed independent Gait: Guided patient with level surface ambulation of 200 feet x 2 using front wheeled walker with WBAT on BLE requiring supervision with decreased lovely, slightly widened LASHELL, and no report of 3/10 pain resolved with rest. No SOB. Denies headache and chest pain. No LOB. Balance: Static Sitting: Normal Dynamic Sitting: Normal Static Standing: Fair Dynamic Standing: Fair Assessment: Emily demonstrates functional mobility decline, weakness of B hip musculature, difficulty with walking, impairment in balance, impaired activity tolerance, and increased risk for falls due to postoperative status. Daughters will be both at home to provide support for mother as she recovers at home. Will benefit from use of a front-wheeled walker for maximized independence and reduced fall risk at home. Patient presents with clinical signs and symptoms consistent with current/admitting diagnoses that have resulted to mobility limitations, gait instability, generalized weakness, and impairment of motor control as demonstrated by the following impairment level findings: 1. Decreased strength to B hip major muscle groups L knee extensor weakness>>R 2. Impaired standing balance Impairments are contributing to the following functional limitations: 1. Inability to safely ambulate without assistive device 2. Increase completion time for mobility ADL performance Goals: Goals X1 week 1. Supine-Sit independent MET 2. Sit-Supine independent MET 3. Sit-Stand independent MET 4. Stand-Sit independent MET 5. Bed-Chair independent MET 6. Chair-Bed independent MET 7. Independent gait on level surface with use of front wheel walker for at least 300 feet without report of pain nor dyspnea NOT MET 8. Independent stair negotiation while holding onto 1 rail for at least 15 steps without report of pain nor dyspnea NOT MET 9. Independent with home exercise program MET 10. Good static and dynamic standing balance/tolerance NOT MET DISCHARGE RECOMMENDATIONS: Home when medically cleared by orthopedic surgeon. Patient will benefit from home health PT services in order to progress mobility level using least restrictive assistive ambulatory device, assess home safety, identify additional equipment needs, and establish a functional maintenance program that will increase ability of patient to remain at home. TREATMENT CODE/TIME: 34041 x 15 minutes, 68746 x 14 minutes beginning at 10:59 AM. Thank you for the opportunity to participate in the care of this patient. Francoise Savage PT, DPT, CLT [facility] [place], [place]
--- NOTE | 2020-09-13 11:04 | CHAPLAIN ---
Emily and were neighbors in [place], [place] for several years. She has since moved to [place], [place] where she said she likes it very much. Her two daughters are staying with her while she recovers from double hip surgery.
== END 2020-09-13 11:32 | disposition home or self-care (01) | DRG 462 ==
LOC: PDS 07:35 → MS 13:01
PROVIDERS: Admitting Provider Student in an Organized Health Care Education/Training Program; Visit Provider Student in an Organized Health Care Education/Training Program
PROC: 0SR90JZ Replacement of Right Hip Joint with Synthetic Substitute, Open Approach (ICD-10-PCS; CPT 27130; principal; 2020-09-12 07:30)
DX: M16.0 Bilateral primary osteoarthritis of hip (principal)
CPT/HCPCS: 27130; 20985 ×2; 36415; 80048; 85027; 97110; 97162; 97530; 73501; J0690; J1100; J1885; J2001; J2060; J2250; J2405; J2704

== ENCOUNTER 2020-09-28 11:42 | Outpatient (CLI) | payer MEDICARE, SELFPAY ==
--- NOTE | 2020-09-28 11:15 | DI.RAD_ITS ---
Exam(s) XR HIP PELVIS ADULT BL EXAM: XR HIP PELVIS ADULT BL INDICATION: 1st post op bilat shira. COMPARISON: CR XR PELVIS AP from 09/04/2020 XR HIP RT IN OR from 09/12/2020 XR HIP RT IN OR from 09/12/2020 XR HIP LT IN OR from 09/12/2020 XR HIP LT IN OR from 09/12/2020 TECHNIQUE: 2D digital imaging was performed. FINDINGS: There are bilateral hip prostheses. The alignment appears satisfactory and unchanged. There there a re no surrounding bony lucencies. DATA REPOSITORY: RADIATION DOSE DELIVERED:
== END 2020-09-28 11:43 | disposition home or self-care (01) ==
LOC: DIORS 11:42
PROVIDERS: Visit Provider Student in an Organized Health Care Education/Training Program
DX: Z47.1 Aftercare following joint replacement surgery (principal); Z96.643 Presence of artificial hip joint, bilateral
CPT/HCPCS: 73521

== ENCOUNTER → 2020-10-26 11:21 | Outpatient (BNVA) | payer MEDICARE, SELFPAY | PROVIDERS: Visit Provider Physician Assistant Surgical | DX: Z47.1 Aftercare following joint replacement surgery (principal); Z96.643 Presence of artificial hip joint, bilateral ==